=== PATIENT | female | born 1995 | race Two or more races ===

== ENCOUNTER 2018-01-01 12:04 | Emergency (ER) | payer MEDICAID ==
[~2018-01-01] VITALS: Ht 154.9 cm; Wt 72.1 kg
[2018-01-01 12:18] VITALS: BP 97/61; Ht 154.9 cm; Wt 72.1 kg
[2018-01-01 13:22] LABS: UA SPECIFIC GRAVITY 1.015 (1.005-1.035); microscopic required? YES; urine erythrocyte NEGATIVE (NEGATIVE)
== END 2018-01-01 16:17 | disposition home or self-care (01) ==
LOC: ED 12:04
PROVIDERS: Specialist
DX: O26.891 Other specified pregnancy related conditions, first trimester (principal); R10.9 Unspecified abdominal pain; M54.5 Low back pain; J45.909 Unspecified asthma, uncomplicated; Z3A.01 Less than 8 weeks gestation of pregnancy